=== PATIENT | female | born 1990 | race Caucasian/White ===

== ENCOUNTER 2025-02-12 07:55 | Day surgery (SDC) | payer OTHER, SELFPAY ==
[2025-02-12] VITALS (14 sets, daily range): BP systolic 95–122; BP diastolic 67–89; PULSE 60–87; RESP 12–18; TEMP 36.3–36.8; O2SAT 96–100; BMI 21.8
--- OUTSIDE RECORDS SUMMARY | 2025-02-12 07:58 | XMS_ITS | Clinical Summary ---
Author Organization [email or web address] [facility] Address [address] [place] [address] Care Team Providers Care Vocational Placement Specialist Name Role Phone Carole Garcia MD Unavailable [phone] Radha Sosa MD Primary Care Pr ovider Allergies Active Allergy Reactions Criticality Noted Date Comments Hydromorphone Edema High 02/16/2011 Vomiting, headaches, face swelling Medications Cholecalciferol, Vitamin D3, (VITAMIN D-3) 5,000 unit tab Take by mouth once daily. 0 6 Active pyridoxine, vitamin B6, (VITAMIN B-6) 25 mg tabletIndication s:Nausea/vomitin g in (HC) Take 1 tablet by mouth once daily. 30 tablet 10 7 Active Magnesium Oxide 500 mg tabIndications:C hronic migraine without aura with status migrainosus, not intractable TAKE 1 TABLET BY MOUTH ONCE DAILY. 30 Tab 11 7 Active albuterol HFA (PRO-AIR; VENTOLIN; PROVENTIL) 90 mcg/actuation inhalerIndicatio ns:Exercise induced bronchospasm (HC) Inhale 1-2 Puffs by mouth every 4 hours if needed for Shortness of Breath 1st choice. Use 15 minutes prior to exercise 1 Each 6 3 Active SUMAtriptan (IMITREX) 100 mg tabletIndication s:Chronic migraine without aura with status migrainosus, not intractable TAKE 1 TABLET BY MOUTH AT ONSET OF MIGRAINE. MAY REPEAT IN 2 HOURS NEEDED. GIVE AT MINIMUM 2 HOURS APART. MAX DOSE: 200 MG PER 24 HOURS 10 Tablet 6 4 Active SUMAtriptan (IMITREX) 6 mg/0.5 mL SUBCUTANEOUS penIndications:C hronic migraine without aura with status migrainosus, not intractable Inject 0.5 mL (6 mg) subcutaneous every 2 hours if needed for Migraine. Give at minimum 2hrs apart. Max Dose: 12mg per 24hrs. 2 Kit 3 4 Active amitriptyline (ELAVIL) 50 mg tabletIndication s:Chronic migraine without aura with status migrainosus, not intractable TAKE 1 TABLET(50 MG) BY MOUTH AT BEDTIME 90 Tablet 4 Active Active Problems Problem Noted Date Diagnosed Date ASCUS of cervix with negative high risk HPV 11/2021 Overview (05/24/2022): 04/2022 ASCUS/HPV negative. Plan: Pap/HPV due 04/2025. Anxiety and depression 02/14/2019 TMJ (temporomandibular joint disorder) 5 Muscle tension headache 03/05/2013 Migraine 03/05/2013 Major depression, single episode 04/11/2011 PMDD (premenstrual dysphoric disorder) 1 Resolved Problems Problem Noted Date Diagnosed Date Resolved Date Exercise induced bronchospasm 02/14/2019 05/18/2024 09/05/2015 02/05/2017 Overview (09/12/2015): 25 y.o. , FOB: [birth year], this is his first child daughter: Ashlyn, 5, Genetic screening: declines Hx migraines Flu vaccine: 08-08-15 Cervical muscle strain 03/05/201307/16 IUD (intrauterine device) in place 03/05/2013 07/16/2014 Hematochezia 04/25/2011 03/05/2013 Diarrhea 04/25/2011 04/21/2012 Abdominal mass 02/11/2009 07/16/2014 Immunizations Immunization Administration Dates Next Due COVID-19 vaccine (Moderna 100mcg/0.5mL) PF, MDV 06/28/2021,05/31/2021 Hepatitis A, Unspecified 02/13/2011,04/12/2004 Hepatitis B (Adult) 05/27/2015,09/28/2014,2003 Hepatitis B, Unspecified 09/25/2004 Human Papilloma Virus Vaccine 02/06/2008, 007,11/20/2006 Influenza, IIV4 09/11/2018, 6,08/08/2015,2013 MMR 09/28/2014 Tdap 02/14/2016,02/13/2011 Tuberculin (PPD) 09/22/2014,03/02/2008 Family History Medical History Relation Name Comments Hemophilia Father Thyroid Disease Maternal Grandmother Psychiatric illness Mother depressi on Von Willebrand disease Paternal Grandmother Cancer-breast No Family History Cancer-ovarian No Family History Relation Name Status Comments Father Maternal Grandmother Mother Paternal Grandmother Social History Tobacco Use Types Packs/Day Years Used Date Smoking Tobacco: Former Cigarettes 0 8 0 11/28/2003 - 11/28/2011 Passive Smoke Exposure: Never Smokeless Tobacco: Never Tobacco Cessation:Counseling Given: No Alcohol Use Standard Drinks/Week Comments No 0 (1 standard drink = 0.6 oz pur e alcohol) PHQ-2 Answer Date Recorded PHQ-2 TOTAL SCORE 1 07/12/2023 Social Connections Answer Date Recorded Do you often feel lonely or isolated from those around you? 0 04/01/2024 Financial Resource Strain Answer Date R ecorded Difficulty of Paying Living Expenses 3 04/01/2024 Difficulty of Paying Living Expenses Not on file 04/01/2024 Food Insecurity Answer Date Recorded Do you worry your food will run out before you are able to buy more? 1 04/01/2024 Transportation Needs Answer Date Record ed Does lack of transportation keep you from medica l appointments? 1 04/01/2024 Does lack of transportation keep you from work, meetings or getting things that you need? 1 04/01/2024 Housing Stability Answer Date Recorded What is your housing situation today? 1 04/01/2024 Utilities Answer Date Recorded Do you have trouble paying f or utilities (for example, heat, electricity, water, phone)? 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 Not on file Not on file Obstetrics History Para Term AB IAB SAB Ectopic Multiple Livin g Live Births 4 1 1 0 1 0 1 0 0 1 1 Date Outcome GA Total Labor Labor/2nd/3rd Weight Sex Type Anes PTL Antonietta A1 A5 Name Clin 2009 Term F Vag Living Ashlyn 1 SAB Last Filed Vital Signs Vital Sign Reading Time Taken Comments Blood Pressure 126/74 08/05/2024 11:16 AM CDT Pulse 106 08/05/2024 11:16 AM CDT Temperature 36.9 C (98.4 F) 05/08/2024 10:53 AM CDT Respiratory Rate 20 01/28/2013 6:47 PM CDT Oxygen Saturation 98% 08/05/2024 11:16 AM CDT Inhaled Oxygen Concentration - - Weight 62.6 kg (138 lb) 08/05/2024 11:16 AM CDT Height 167.6 cm (5' 6) 04/01/2024 10:02 AM CDT Body Mass Index 22.27 04/01/2024 10:02 AM CDT Plan of Treatment Health Maintenance Due Date Last Done Comments COVID-19 vaccine series ( season) 2024 06/28/2021, 05/31/2021 Depression screening for age 12+ 07/12/2024 07/12/2023, 04/12/2022, 12/14/2020, Additional history exists BMI (ht and wt on same day) for age 18+ 04/01/2025 04/01/2024, 07/12/2023, 04/12/2022, Additional history exists Pap test for age 21-65 04/12/2025 , 04/12/2022, 06/18/2018, Additional history exists Influenza Vaccine (Season Ended) 2025 09/11/2018, 10/17/2016, 08/08/2015, Additional history exists Tetanus booster 02/13/2026 02/14/2016, 0403/2011 (Completed outside of [facility]), 02/13/2011 Tdap Completed 02/14/2016, 02/13/2011 HIV for age 15-65 Completed 08/05/2024, , 05/08/2024, Additional history exists Hepatitis C screening for age 18-79 Completed 08/05/2024, 05/08/2024, 04/01/2024, Additional history exists Pneumococcal series for age 6-49 Aged Out No longer eligible based on patient's age to complete this topic Procedures Procedure Name Priority Date/Time Associated Diagnosis Comments HIV 1/2 ANTIGEN/ANTIBODY FOURTH GENERATION W/RFL ([facility]) Routine 08/05/2024 11:28 AM CDT Screen for STD (sexually transmitted disease) ANTI HCV Routine 08/05/2024 11:28 AM CDT Screen for STD (sexually transmitted disease) HPV HIGH RISK Routine 04/12/2022 1:56 PM CDT Cervical cancer screening from Last 3 Months or Most Recently Relevant to Health Maintenance Results * HIV 1/2 AG/AB 4TH GEN W/RFL ([facility]) (08/05/2024 11:28 AM CDT) Pathologist [facility] HIV AG/AB, 4TH GEN NON-REACT ALEJANDRA NON-REACT ALEJANDRA [facility] Comment: HIV-1 antigen and HIV-1/HIV-2 antibodies were not detected. There is no laboratory evidence of HIV infection. PLEASE NOTE: This information has been disclosed to you from records whose confidentiality may be protected by state law. If your state requires such protection, then the state law prohibits you from making any further disclosure of the information without the specific written consent of the person to whom it pertains, or as otherwise permitted by law. A general authorization for the release of medical or other information is NOT sufficient for this purpose. For additional information please refer to http://education.[place].Stem/faq/RGA080 (This link is being provided for informational/ educational purposes only.) The performance of this assay has not been clinically validated in patients less than 2 years old. Blood BLOOD SPECIMEN / Unknown 08/05/2024 11:28 AM CDT 08/05/2024 11:29 AM CDT Narrative [facility] - 08/06/2024 9:49 PM CDT MULTIPLE TESTING PRIORITIES; ROUTINE TESTING TO FOLLOW. Mimi Springer MANAGER RELATIONSHIP SEND OUTS Final Res ult Performing Organization Address [facility] Co de Phone Number [facility] [address] [place] [address], [place] [phone] [facility] [address] [place] [address] * ANTI HCV (08/05/2024 11:28 AM CDT) Pathologist [facility] HEPATITIS C ANTIBODY NON-REACTI VE NON-REACT LAEJANDRA [facility] Comment: HCV antibody was non-reactive. There is no laboratory evidence of HCV infection. In most cases, no further action is required. However, if recent HCV exposure is suspected, a test for HCV RNA (test code 85369) is suggested. For additional information please refer to http://education.[employer]/faq/UZG70i8 (This link is being provided for informational/ educational purposes only.) Blood BLOOD SPECIMEN / Unknown 08/05/2024 11:28 AM CDT 08/05/2024 11:29 AM CDT Narrative [facility] - 08/06/2024 9:49 PM CDT MULTIPLE TESTING PRIORITIES; ROUTINE TESTING TO FOLLOW. Mimi Springer MANAGER RELATIONSHIP SEND OUTS Final Res ult Performing Organization Address [facility] Co de Phone Number [employer] [facility] [address] [place] [address], [place] [phone] [facility] [address] [place] [address] * HPV HIGH RISK (04/12/2022 1:56 PM CDT) [facility] TYPE 16 Negative Negative 04/17/2022 11:08 AM CDT [facility] TYPE 18 Negative Negative 04/17/2022 11:08 AM CDT [facility] OTHER HIGH RISK TYPES Negative Negative 04/17/2022 11:08 AM CDT [facility] Other (Cervical) Non-Blood / Unknown 04/12/2022 1:56 PM CDT 04/13/2022 9:59 AM CDT Narrative [facility] - 04/17/2022 11:08 AM CDT HPV types 16, 18, 31, 33, 35, 39, 45, 51, 52, 56, 58, 59, 66 and 68 DNA were undetectable or below the pre-set threshold. Methodology: Carrillo Wil 4800 HPV Test us Megan Mccarthy DO MICROBIOLOGY Final Resul t [facility] [address] [place] [address], from Last 3 Months or Most Recently Relevant to Health Maintenance Advance Directives * Full Code (Latest Code Status on File) Date Activated Date Inactivated Comments 05/03/2011 1:26 PM 05/04/2011 2:11 AM Care Teams Vocational Placement Specialist Relationship Specialty Start Date End Date Radha Sosa MD [address] [place] [address] PCP - General Internal Medicine 06/12/24 [place] [address] [place] [address] Family Practice 05/19/15
--- NOTE | 2025-02-12 08:17 | CRLHL7_ITS ---
For Patients: As a result of the 21st Century Cures Act, medical imaging exams and procedure reports are released immediately into your electronic medical record. You may view this report before your referring provider. If you have questions, please contact your health care provider. Indication: Abdominal pain Technique: Volumetric multidetector CT images of the abdomen and pelvis were obtained after the administration of intravenous contrast. 66 cc Isovue 370 low osmolar intravenous contrast Comparison: None available. Findings: The lung bases are clear. The liver is mildly prominent with minimal hepatic steatosis and hepatomegaly. The portal vein is patent. The gallbladder is unremarkable without evidence of radiopaque calculus. There is no significant common biliary ductal dilatation or abrupt cut off. There is subtle fluid seen in the left upper quadrant adjacent to the spleen without definite evidence of adjacent splenic injury. There is a small splenule appreciated. The stomach and duodenum are grossly unremarkable. The pancreas is normal in enhancement without significant atrophy. The adrenal glands are unremarkable. There are likely nonobstructive calculi in the bilateral collecting systems with otherwise preserved corticomedullary differentiation. There is moderate stool seen throughout the colon with effacement of the rectosigmoid colon secondary to bilateral ovarian mass lesions. The appendix is not well visualized. There is no significant mesenteric, retroperitoneal, or pelvic sidewall lymph nodes. The aorta is nonaneurysmal. There is no significant atherosclerotic disease appreciated. Within the right ovary there is demonstration of a cystic fat soft tissue and calcium containing mass lesion measuring up to 6.3 x 5.4 centimeters. The left ovary is somewhat limited in evaluation due to extensive likely adnexal fluid with suggestion of dependent calcified lesions within a cystic focus measuring 3.6 x 2.1 centimeters. The remaining pelvic viscera are grossly within normal limits. There is minimal fluid tracking along the left pericolic gutter and bilateral adnexa. There is mild diastasis of the rectus musculature. The lumbar vertebral body heights are grossly maintained with minimal endplate Schmorl`s defects. No significant spondylolisthesis or displaced fracture. Impression: 1. Demonstration of bulky bilateral ovaries with a 6.3 centimeter fat calcium and soft tissue containing mass within the right ovary commensurate with a teratoma. Suggestion of markedly enlarged right-sided ovary, underlying torsion may be difficult to exclude. There is symmetrical effacement of the rectosigmoid colon secondary to bilateral masslike ovaries. 2. Additional suggestion of cystic lesion within the left ovary with dependent calcific opacities which may represent an additional teratoma with dependent primordial tooth formation; however, no significant fat is identified. 3. Fluid within the bilateral adnexa and cul-de-sac with trace fluid tracking along the left pericolic gutter and seen in the perisplenic space. No definite evidence of capsular injury. 4. Hepatomegaly and hepatic steatosis. Nephrolithiasis without evidence of obstructive uropathy. Findings discussed with Anjum Canseco at 9:25 a.m. February 12, 20[address] Please note that all CT scans at this facility use dose modulation, iterative reconstruction, and/or weight-based dosing when appropriate to reduce radiation dose to as low as reasonably achievable. Dictated by Miles Carter MD @ 02/12/2025 9:27:08 AM (Electronically Signed)
--- NOTE | 2025-02-12 08:19 | ED.ABDPAIN ---
HPI - Abdominal Pain General Chief Complaint: Abdominal Pain Stated Complaint: abdominal pain Time Seen by Provider: 02/12/25 08:09 History of Present Illness HPI narrative: Patient is a 35-year-old healthy woman who is having intercourse with her in approximately 2 hours ago when she developed acute abdominal pain. The pain is in the low abdomen. She has had no fevers no chills no night sweats. She feels like her abdomen is distended. She does not believe that she is . She has no reflux symptoms. No dysuria no nausea no vomiting. Patient is not certain whether she is . She does not endorse any control methods. Related Data Home Medications ?Medication ?Instructions ?Recorded ?Confirmed No Known Home Medications 02/12/25 02/12/25 Allergies Allergy/AdvReac Type Severity Reaction Status Date / Time No Known Drug Allergies Allergy Verified 02/12/25 08:59 Review of Systems Status of ROS Reports: 10 or more systems reviewed and unremarkable except as noted in History and below [facility] Social History Smoking Status: Never smoker Do you use any of these nicotine containing products: None How often do you have a drink containing alcohol: monthly or less AUDIT-C Alcohol total score: 1 Non-prescribed substance use: denies use service: No Exam Narrative: Exam Narrative: EXAM GENERAL: Patient appears comfortable and well. EYES: No scleral icterus. LYMPH: No supraclavicular or cervical lymphadenopathy. SKIN: Visible skin seen during exam normal or with benign process only. EXT: No dependent lower extremity pedal edema. HEART: Regular rate and rhythm with no murmurs, rubs, or gallops. LUNGS: Clear to auscultation bilaterally with no crackles or wheezes. ABD: Mildly distended with lower abdominal tenderness. Hypoactive bowel sounds PSYCH: Good eye contact, speech is not pressured. Const: Vital Signs, click to edit/add: Vital Signs - 24 hr 02/12/25 08:00 Temperature 98 F Pulse Rate [Right Pulse Oximeter] 87 Respiratory Rate 18 Blood Pressure [Ri ght Upper Arm] 122/82 Pulse Oximetry 97 Oxygen Delivery Me thod Room Air Course Course ED Course: Patient seen examined. Lab work CT of the abdomen pelvis including urine and UA pending. Vital Signs Vital signs: Initial Vital Signs Temperature 98 F 02/12/25 08:00 Temperature Source Temporal Artery Scan 02/12/25 08:00 Pulse Rate 87 02/12/25 08:00 Pulse Rhythm Regular 02/12/25 08:00 Pulse Strength 3+ Normal 02/12/25 08:00 Respiratory Rate 18 02/12/25 08:00 Blood Pressure 122/82 02/12/25 08:00 Blood Pressure Mean 95 02/12/25 08:00 Blood Pressure Position Sitting 02/12/25 08:00 Pulse Oximetry 97 02/12/25 08:00 Oxygen Delivery Method Room Air 02/12/25 08:00 Vital Signs Temperature 98 F 02/12/25 08:00 Pulse Rate 87 02/12/25 08:00 Respiratory Rate 18 02/12/25 08:00 Blood Pressure 122/82 02/12/25 08:00 Pulse Oximetry 97 02/12/25 08:00 Oxygen Delivery Method Room Air 02/12/25 08:00 Temperature 98 F 02/12/25 08:00 Pulse Rate 87 02/12/25 08:00 Respiratory Rate 18 02/12/25 08:00 Blood Pressure 122/82 02/12/25 08:00 Pulse Oximetry 97 02/12/25 08:00 Oxygen Delivery Method Room Air 02/12/25 08:00 MDM - Abdominal Pain MDM Narrative Medical decision making narrative: Patient is a 35-year-old woman who presents after developing lower abdominal pain with intercourse this morning. Workup shows no fever chills. 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 Patient has been NPO for greater than 12 hours. OBGYN call the patient will be transported to the operating room for further treatment. Lab Data Labs: Lab Results 02/12/25 Range/Units 08:32 WBC 5.56 (4.50-11.00) K/uL RBC 4.34 (4.00-5.20) m/uL Hgb 13.7 (12.0-16.0) gm/dL Hct 41.1 (33.0-51.0) % MCV 95 (80-100) fL MCH 32 (26-34) pg MCHC 33 (32-36) gm/dL RDW Coeff of Deacon 11.6 (11.5-15.5) % Plt Count 248 (140-440) K/uL Neut % (Auto) 56.8 (42.0-72.0) % Lymph % (Auto) 29.1 (20-44) % [place] % (Auto) 10.3 (0.0-11.0) % Eos % (Auto) 3.4 (0.0-7.0) % Baso % (Auto) 0.4 (0.0-3.0) % Neut # (Auto) 3.16 (1.7-7.0) K/uL Lymph # (Auto) 1.62 (0.90-2.90) K/uL [place] # (Auto) 0.60 (0.00-0.90) K/UL Eos # (Auto) 0.19 (0.00-0.50) K/uL Baso # (Auto) 0.02 (0.00-0.30) K/uL Abs Immat Gran (auto) 0.00 (0.00-0.30) K/uL Imm/Tot Granulo (auto) 0.0 % Sodium 135 (135-149) mmol/L Potassium 3.7 (3.6-5.1) mmol/L Chloride 101 (96-114) mmol/L Carbon Dioxide 26 (20-32) mmol/L Anion Gap 8 (7-15) mEq/L BUN 10 (5-24) mg/dL Creatinine 0.6 (0.5-1.5) mg/dL Estimated Creat Clear 122.51 Estimated GFR 120 ml/min Glucose 94 (60-115) mg/dL Calcium 9.1 (8.4-10.6) mg/dL Urine Color Yellow (Yellow) Urine Appearance Clear (Clear) Urine pH 6.0 (5.0-8.5) Ur Specific [place] 1.015 (1.000-1.030) Urine Protein Negative (Negative) Urine Glucose (UA) Negative (Negative) Urine Ketones Negative (Negative) Urine Blood Negative (Negative) Urine Nitrite Negative (Negative) Urine Bilirubin Negative (Negative) Urine Urobilinogen 0.2 (0.2-1.0) Ur Leukocyte Esterase Negative (Negative) Urine HCG, Qual Negative (Negative) Discharge Plan Discharge Clinical Impression: Teratoma Patient Disposition: Xfer SNF Condition: Stable Instructions: Ovarian Cyst (ED) Activity Level: Other Discharge Diet: Other Prescriptions: No Action No Known Home Medications Follow Up/Referrals: Provider,Not a Local [Primary Care Provider] - Stand Alone Forms: [employer] Info Instructions
[2025-02-12 08:40] LABS: Appearance Urine Clear (Clear); Bilirubin Urine Negative (Negative); Blood Urine Negative (Negative); Color Urine Yellow (Yellow); Glucose Urine Negative (Negative); Ketones Urine Negative (Negative); Leukocyte Esterase Urine Negative (Negative); Nitrite Urine Negative (Negative); Protein Urine Negative (Negative); Specific Gravity Urine 1.015 (1.000-1.030); Urobilinogen Urine 0.2 (0.2-1.0)
[2025-02-12 08:42] LABS: Basophils Absolute Auto 0.02 K/uL (0.00-0.30); Basophils Percent Auto 0.4 % (0.0-3.0); Eosinophils Absolute Auto 0.19 K/uL (0.00-0.50); Eosinophils Percent Auto 3.4 % (0.0-7.0); Hematocrit 41.1 % (33.0-51.0); Hemoglobin* 13.7 gm/dL (12.0-16.0); Lymphocytes Absolute Auto 1.62 K/uL (0.90-2.90); Lymphocytes Percent Auto 29.1 % (20-44); Mean Corpuscular HGB Conc 33 gm/dL (32-36); Mean Corpuscular Hemoglobin 32 pg (26-34); Mean Corpuscular Volume 95 fL (80-100); Monocytes Percent Auto 10.3 % (0.0-11.0); Neutrophils Absolute Auto 3.16 K/uL (1.7-7.0); Neutrophils Percent Auto 56.8 % (42.0-72.0); Platelet Count* 248 K/uL (140-440); RDW Coefficient of Variation % 11.6 % (11.5-15.5); Red Blood Count 4.34 m/uL (4.00-5.20); White Blood Count* 5.56 K/uL (4.50-11.00)
--- OUTSIDE RECORDS SUMMARY | 2025-02-12 08:42 | XMS_ITS | Clinical Summary ---
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 For additional information please refer to http://education.[employer].Performable/faq/UPL746 (This link is being provided for informational/ educational purposes only.) The performance of this assay has not been clinically validated in patients less than 2 years old. Blood BLOOD SPECIMEN / Unknown 08/05/2024 11:28 AM CDT 08/05/2024 11:29 AM CDT Narrative [facility] - 08/06/2024 9:49 PM CDT MULTIPLE TESTING PRIORITIES; ROUTINE TESTING TO FOLLOW. Mimi Springer PROFESSOR OF HISTORICAL THEOLOGY SEND OUTS Final Res ult Performing Organization Address [facility] Co de Phone Number [employer] [facility] [address] [place] [address], [place] [phone] [facility] [address] [place] [address] * ANTI HCV (08/05/2024 11:28 AM CDT) Pathologist [facility] HEPATITIS C ANTIBODY NON-REACTI VE NON-REACT ALEJANDRA [facility] Comment: HCV antibody was non-reactive. There is no laboratory evidence of HCV infection. In most cases, no further action is required. However, if recent HCV exposure is suspected, a test for HCV RNA (test code 72601) is suggested. For additional information please refer to http://education.[employer]/faq/UOP28r7 (This link is being provided for informational/ educational purposes only.) Blood BLOOD SPECIMEN / Unknown 08/05/2024 11:28 AM CDT 08/05/2024 11:29 AM CDT Narrative [facility] - 08/06/2024 9:49 PM CDT MULTIPLE TESTING PRIORITIES; ROUTINE TESTING TO FOLLOW. Mimi Springer PROFESSOR OF HISTORICAL THEOLOGY SEND OUTS Final Res ult Performing Organization Address [facility] Co de Phone Number [employer] [facility] [address] [place] [address], [place] [phone] [facility] [address] [place] [address] * HPV HIGH RISK (04/12/2022 1:56 PM CDT) [facility] TYPE 16 Negative Negative 04/17/2022 11:08 AM CDT [facility] TYPE 18 Negative Negative 04/17/2022 11:08 AM CDT [facility] OTHER HIGH RISK TYPES Negative Negative 04/17/2022 11:08 AM CDT [facility] Other (Cervical) Non-Blood / Unknown 04/12/2022 1:56 PM CDT 04/13/2022 9:59 AM CDT Narrative [facility] - 04/17/2022 11:08 AM CDT HPV types 16, 18, 31, 33, 35, 39, 45, 51, 52, 56, 58, 59, 66 and 68 DNA were undetectable or below the pre-set threshold. Methodology: Carrillo Wil 4800 HPV Test us Megan Mccarthy DO MICROBIOLOGY Final Resul t [facility] [address] [place] [address], from Last 3 Months or Most Recently Relevant to Health Maintenance Advance Directives * Full Code (Latest Code Status on File) Date Activated Date Inactivated Comments 05/03/2011 1:26 PM 05/04/2011 2:11 AM Care Teams Red Hat Linux Engineer Relationship Specialty Start Date End Date Radha Sosa MD [address] [place] [address] PCP - General Internal Medicine 06/12/24 [place] [address] [place] [address] Family Practice 05/19/15
[2025-02-12 08:43] LABS: Ur HCG Qualitative* Negative (Negative)
[2025-02-12 08:45] LABS: Slide Review Reflex No
[2025-02-12 08:54] LABS: Chloride* 101 mmol/L (96-114); Potassium* 3.7 mmol/L (3.6-5.1); Sodium* 135 mmol/L (135-149)
[2025-02-12 08:57] LABS: Anion Gap 8 mEq/L (7-15); Blood Urea Nitrogen* 10 mg/dL (5-24); Calcium* 9.1 mg/dL (8.4-10.6); Carbon Dioxide* 26 mmol/L (20-32); Creatinine* 0.6 mg/dL (0.5-1.5); Est. Creatinine Clearance* 122.51; Estimated Glomerular Filt Rate 120 ml/min; Glucose* 94 mg/dL (60-115)
--- NOTE | 2025-02-12 10:06 | P.GYNCN_ITS ---
CROSSTIE INSPECTOR - CN: HPI Data of Consult Time Seen by Provider: 10:06 Date Seen: 02/12/25 Patient: Other Primary Care Provider: Not a Local Provider Consult Narrative Reason for consult: pelvic pain and pelvic mass Narrative: Carole Jones is a 35 year old female who presented to the ED with acute onset of severe abdominal pain after intercourse. I was consulted due to CT findings: 1. Demonstration of bulky bilateral ovaries with a 6.3 centimeter fat calcium and soft tissue containing mass within the right ovary commensurate with a teratoma. Suggestion of markedly enlarged right-sided ovary, underlying torsion may be difficult to exclude. There is symmetrical effacement of the rectosigmoid colon secondary to bilateral masslike ovaries. 2. Additional suggestion of cystic lesion within the left ovary with dependent calcific opacities which may represent an additional teratoma with dependent primordial tooth formation; however, no significant fat is identified. 3. Fluid within the bilateral adnexa and cul-de-sac with trace fluid tracking along the left pericolic gutter and seen in the perisplenic space. No definite evidence of capsular injury. 4. Hepatomegaly and hepatic steatosis. Nephrolithiasis without evidence of obstructive uropathy. Reports years of intermittent lower abdominal discomfort with activities. She has pain with deep penetration during intercourse and often would have to change sexual position. Has been been evaluated for these symptoms. Discussed that a teratoma is a germ cell tumor with various tissue line. Generally mature teratomas are benign but there's a small risk of malignant potential. Primary management is removal. They can cause emergent situation such as ovarian torsion and rupture. She has free fluid in her abdomen which implied that rupture has occurred. Additionally, her right ovary have features that is concerning for ovarian torsion. I do recommend emergent surgery given that her clinical symptoms and imaging findings. I reviewed that I would recommend doing a diagnostic laparoscopy, bilateral ovarian cystectomy, with possible oophorectomy. Indication (s) for her surgery: ruptured ovarian cyst, possible ovarian torsion, acute abdomen. Cystectomy means removal of only the teratomas, which is my goal. However, there are cases which there are no identifiable normal ovarian tissue, emergent bleeding or concern for malignancy where oophorectomy is the safer option. On the rare chance that both ovaries need removal, she will be in surgical men opause. For parts counterman health, she will need hormone replacement therapy until the age of 50 y/o. Patient with premenopause bilateral oophorectomy with hormone replacement are have higher risk of cardiovascular disease, osteoporosis, dementia and all cause mortality. She is amenable to hormone therapy if needed. Again, I emphasized my goal is to keep at least one of her ovaries. If she has a singular functioning ovary, she does not need hormone therapy. We discussed risks, benefits, and alternatives. Risks associated with this procedure include: Hemorrhage to the point of requiring transfusion less than 1%, surgical site infection is 2-5% (I will treat her with pre-operative antibiotics), risk of injury to organs that are adjacent to the uterus such as bladder, bowel, blood vessels, nerves or ureters is 0.1-0.3%. Most injuries will be addressed intraoperatively but she might require additional surgeries. We discussed there is a low risk of converting to an open surgery. There is a risk of blood clots (DVT) of about 0.2-1%. Adverse reaction to anesthesia is also very rare occurring less than 1%. We discussed strategies to minimize these risks. I reviewed activity restrictions post-surgery: can go home the same day if surgery and PACU course is uncomplicated. No lifting anything greater than 15 lb for at least 2 weeks, walking and walking up and down stairs safe starting post op day 1., no more strenuous activity than walking for at least the 1st 2 weeks, no driving while taking narcotic pain medication approximately 1 week postop Questions answered to the patient's satisfaction and the best of my abilities. Consent form signed Patient denies fever, chills, chest pain, SOB, n/v, or dizziness. Patient denies vaginal bleeding, leakage of fluid, or contractions. She also denies CAICEDO, n/v, RUQ pain, or visual abnormalities Endorses normal movement. cc:: CC: [facility] Social History Smoking Status: Never smoker Do you use any of these nicotine containing products: None How often do you have a drink containing alcohol: monthly or less AUDIT-C Alcohol total score: 1 Non-prescribed substance use: denies use service: No Meds Home Medications and Allergies Allergies Allergy/AdvReac Type Severity Reaction Status Date / Time No Known Drug Allergies Allergy Verified 02/12/25 08:59 CROSSTIE INSPECTOR - Exam Physical Exam: Vital signs: Temp Pulse Resp BP Pulse Ox O2 Del Method 98 F 87 18 122/82 97 Room Air 02/12/25 08:00 02/12/25 08:00 02/12/25 08:00 02/12/25 08:00 02/12/25 08:00 02/12/25 08:00 Narrative: Physical exam: General: Acutely distressed and crying. Consolable. Psych: Alert and oriented x3, full affect HEENT: Normocephalic, atraumatic Lungs: Unlabored breathing Neuro: No focal deficit. Mentating appropriately Abdomen: Mildly distended. Soft. Tenderness with palpation. +Guarding + Rebound/ +peritoneal sign (pain with sneezing and laughing) Pelvic exam: Deferred to OR CROSSTIE INSPECTOR - Results Labs Labs: Short CBC 02/12/25 Range/Units 08:32 WBC 5.56 (4.50-11.00) K/uL Hgb 13.7 (12.0-16.0) gm/dL Hct 41.1 (33.0-51.0) % Plt Count 248 (140-440) K/uL BMP 02/12/25 08:32 Sodium 135 Potassium 3.7 Chloride 101 Carbon Dioxide 26 BUN 10 Creatinine 0.6 Glucose 94 Calcium 9.1 Urine 02/12/25 Range/Units 08:32 Urine Color Yellow (Yellow) Urine Appearance Clear (Clear) Urine pH 6.0 (5.0-8.5) Ur Specific Stuart 1.015 (1.000-1.030) Urine Protein Negative (Negative) Urine Glucose (UA) Negative (Negative) Assessment and Plan Assessment and plan (1) Ovarian torsion: Status: Acute (2) Ruptured ovarian cyst: Status: Acute (3) Teratoma: Status: Acute Plan - Last ate at 7pm last night (dinner) - VSS - Hgb/plt: 13.7/248 - T&S pending - Will proceed to OR
[2025-02-12] MEDS: HYDROmorphone 0.5 mg/0.5 ml inj IVP (10:12)
[2025-02-12] MEDS: CEFAZOLIN 2 GM in 0.9 % SODIUM CHLORIDE Mini-bag 100 ML IVPB (10:53)
[2025-02-12] MEDS: metroNIDAZOLE 500 MG/100 ML PIGGYBACK 100 MG IVPB (11:08)
[2025-02-12] MEDS: BUPIVACAINE 0.25% 30 ML INJECTION (12:31)
--- NOTE | 2025-02-12 13:01 | P.ANES_ITS ---
Anesthesia Charges Start Date/Time Anesthesia Start Date: 02/12/25 Anesthesia Start Time: 10:45 Stop Date/Time Anesthesia Stop Date: 02/12/25 Anesthesia Stop Time: 13:00 Coding CPT Codes CPT Codes: ANESTH SURG LOWER ABDOMEN - 14330 ([id number]) P1 - NORMAL HEALTHY PATIENT, QZ - SPECIFICATION CONSULTANT SVC W/O HIDE OR SKIN BUFFER BY
--- NOTE | 2025-02-12 13:01 | W.ANESCHARGE ---
Anesthesia Charges Start Date/Time Anesthesia Start Date: 02/12/25 Anesthesia Start Time: 10:45 Stop Date/Time Anesthesia Stop Date: 02/12/25 Anesthesia Stop Time: 13:00 Coding CPT Codes CPT Codes: ANESTH SURG LOWER ABDOMEN - 97880 ([id number]) P1 - NORMAL HEALTHY PATIENT, QZ - BINDER OPERATOR SVC W/O WOOL GROWER BY
[2025-02-12] MEDS: fentaNYL 100 MCG/2 ML inj 50 MCG IVP ×2 (13:13→13:23)
--- NOTE | 2025-02-12 13:38 | SUR.PHASEI ---
patient met discharge criteria per anesthesia
--- NOTE | 2025-02-12 13:41 | P.PCNOB_ITS ---
Procedure Pre-op/Post-op diagnoses: Pre-Op/Post-Op Diagnoses Operation Date: 02/12/25 10:45 <No data on this case meets the specified criteria> Procedure: Procedures Operation Date: 02/12/25 10:45 Actual Procedure Side Surgeon p Diagnostic Laparoscopy, Pelvic Washings, Bilateral Ovarian Cystectomy Maria D Todd MD Java Support Engineer: Maria D Todd Anesthesia Type: Local and MAC Complications: none Specimen: other (Bilateral ovarian teratomas ) Narrative: PreOp Dx: Bilateral teratomas, ruptured ovarian cyst, possible ovarian torsion, acute abdomen PostOp Dx: Hemoperitoneum, bilateral teratomas, ruptured left ovarian cyst Operative Findings: Exam under anesthesia: Pelvic exam: Mons normal, clitoris normal, urethral meatus normal. Labia minora and majora normal in appearance bilaterally. Perineum and anus normal appearance. Vaginal introitus normal appearance. Vaginal pink and well rugated with scant white discharge. Bimanual exam reveals uterus to be soft, mobile, anteverted, of normal size and texture. Pelvic fullness noted. On laparoscopy: Approximately 400 mL of hemoperitoneum upon entry, bilateral ovarian teratomas ( right ovarian teratoma measures approximately 10 cm, left ovarian teratoma measures approximately 4 cm). Left ovarian cyst ruptured with active bleeding noted. Normal fallopian tubes, normal uterus, normal liver. EBL: 400 cc of hemoperitoneum, 10 mL from surgery Specimens: Bilateral ovarian teratomas Complications: None UOP: 300 cc IV fluid: 800 cc Preoperative antibiotics: 2 g of ancef and 500 mg of flagyl Clinical Note: Ms. Lam is a 35 year old female who presented with acute abdominal pain after intercourse and diagnosed with bilateral teratomas and free fluid in the abdomen. Carole was taken to the operating room where general anesthetic was found to be adequate. She was placed in the dorsal lithotomy position and an exam under anesthesia was performed with findings stated above. She was then prepped and draped in a normal sterile manner. A Bladder was drained with Martínez catheter was placed. Sponges was placed intravaginally to act as uterine manipulator. Attention was then turned to performing the laparoscopic portion of the procedure. All incisions were infiltrated with 1% lidocaine with epinephrine prior to incising the skin. A vertical, infraumbilical 5 mm incision was made. A 5 mm trocar was then placed under direct visualization. The abdomen was then insufflated with CO2 gas to a pressure of 15 mm of mercury. The patient was then placed in steep Trendelenburg. Two pelvic ports were then placed approximately 3-4 finger breaths medial to the ischial crests. The trocar in the RLQ = 5mm, LLq = 11mm. These were placed under direct visualization. A 4th port was made in the patient's left lower quadrant, just superior medial to the left ASIS. A 5 mm Fios Kii port was inserted under direct visualization and without complication. The balloon on each of the 4 ports was inflated, holding each in place. Examination of the peritoneal cavity revealed no signs of injury from entry and findings stated above. Pelvic washings collected. Attention was then turned to performing the diagnostic laparoscopy and bilateral cystectomy. Right ovarian teratoma was dissected off of the ovarian cortex using LigaSure and traction. It was removed from the ovary intact and minimal bleeding. Left ovarian teratoma was removed in similar manner except that there was already ruptured of the cyst prior to surgery. Both ovaries were preserved. Specimens were removed from the abdomen with EndoCatch bag. Hemostasis was achieved with electrocautery and Susie was applied on the exposed ovarian cortices bilaterally. Excellent hemostasis was noted of all pedicles at low pressure. The trocars were then removed under direct visualization. The CO2 gas was allowed to escape the infraumbilical port prior to its removal. Fascia closed using 0 Vicryl on 11 port. All incisions were reapproximated using 4-0 Monocryl in a running subcuticular manner. Exofin was applied over each incision. The vaginal manipulator and Martínez catheter were removed. The patient tolerated this procedure well. Sponge, lap and instrument counts were correct x2 at the end of the procedure and the patient was taken to the recovery area in stable condition. Surgical debrief performed and specimen reviewed.
[2025-02-12] MEDS: OXYCODONE 5 MG TABLET PO (14:13)
[2025-02-12] MEDS: METOCLOPRAMIDE HCL 5 MG/ML INJ 10 MG IVP (14:40)
[2025-02-12] MEDS: ACETAMINOPHEN 325 MG TABLET PO (15:00)
== END 2025-02-12 15:12 | disposition home or self-care (01) ==
LOC: ED 10:10 → OR 10:53
PROVIDERS: Emergency Provider Internal Medicine; Visit Provider Obstetrics & Gynecology
PROC: (CPT 49320; principal; 2025-02-12 10:30)
DX: D27.0 Benign neoplasm of right ovary (principal); D27.1 Benign neoplasm of left ovary; K66.1 Hemoperitoneum; N83.511 Torsion of right ovary and ovarian pedicle; R10.30 Lower abdominal pain, unspecified
CPT/HCPCS: 58662; 00840; 36415; 74177; 80048; 81003; 81025; 85025; 86850; 86900; 86901; 88112; 88307; 99283; 99284; 99285; A9270; J0330; J0665; J0690; J1100; J1171; J1630; J1836; J1885; J2405; J2704; J2765; J3010; J3475; J3490; Q9967